=== PATIENT | female | born 1995 | race Caucasian/White ===

== ENCOUNTER 2016-08-27 00:34 | Emergency (ER) | payer OTHER ==
[2016-08-27 01:21] LABS: ABSOLUTE BASOPHILS # (AUTO) 0.1 10^3/uL (0.0-0.2); ABSOLUTE EOSINOPHILS # (AUTO) 0.2 10^3/uL (0.0-0.6); ABSOLUTE LYMPHOCYTES (AUTO) 2.5 10^3/uL (0.5-4.7); ABSOLUTE MONOCYTES (AUTO) 0.5 10^3/uL (0.1-1.4); ABSOLUTE NEUT (AUTO) 4.9 10^3/uL (1.7-8.2); BASOPHILS % (AUTO) 0.8 % (0-2); EOSINOPHILS % (AUTO) 2.1 % (0-6); HEMATOCRIT 40.9 % (36.0-47.0); HEMOGLOBIN 13.7 g/dL (12.0-15.5); HGB HCT DIFFERENCE 0.2; LYMPHOCYTES % (AUTO) 30.6 % (13-45); MEAN CORPUSCULAR HEMOGLOBIN 27.3 pg (27.0-33.4); MEAN CORPUSCULAR HGB CONC 33.6 g/dL (32.0-36.0); MEAN CORPUSCULAR VOLUME 81 fl (80-97); MONOCYTES % (AUTO) 6.3 % (3-13); RED BLOOD COUNT 5.03 10^6/uL (3.72-5.28); RED CELL DISTRIBUTION WIDTH 12.7 % (11.5-14.0); SEGMENTED NEUTROPHILS % (AUTO) 60.2 % (42-78); WHITE BLOOD COUNT 8.1 10^3/uL (4.0-10.5)
[2016-08-27 01:53] LABS: ANION GAP 12 (5-19); BLOOD UREA NITROGEN 6 mg/dL (7-20); CALCIUM 9.1 mg/dL (8.4-10.2); CARBON DIOXIDE 26 mmol/L (22-30); CHLORIDE 103 mmol/L (98-107); CREATININE RESULT 0.59 mg/dL (0.52-1.25); GLUCOSE 86 mg/dL (75-110); LIPASE 73.3 U/L (23-300); POTASSIUM 3.9 mmol/L (3.6-5.0); SODIUM 141.4 mmol/L (137-145)
[2016-08-27 01:58] LABS: APPEARANCE,URINE SLIGHTLY-CLOUDY; BILIRUBIN,URINE NEGATIVE (NEGATIVE); GLUCOSE, URINE NEGATIVE (NEGATIVE); KETONES,URINE NEGATIVE (NEGATIVE); LEUKOCYTE ESTERASE,URINE SMALL (NEGATIVE); NITRITE,URINE NEGATIVE (NEGATIVE); PROTEIN,URINE NEGATIVE (NEGATIVE); URINE SPECIFIC GRAVITY 1.011; UROBILINOGEN,URINE NEGATIVE mg/dL (<2.0)
--- NOTE | 2016-08-27 02:18 | ER Document Report ---
ED General - General Chief Complaint: Pelvic Pain Stated Complaint: CHEST TIGHTNESS,7 WKS ,LOWER R PELVIC PAIN Mode of Arrival: Ambulatory Information source: Patient Notes: Patient presents to the emergency department with complaints of right-sided abdominal pain and pain in her chest. She reports symptoms started this evening. She reports that the pain chest comes and goes when she coughs or takes a deep breath. She reports the right lower quadrant abdominal pain has been achy all day, increased this afternoon. She reports the pain is positional. She reports diarrhea 2. She denies fever vomiting but reports some nausea. She declines nausea medicine at this time. She denies vaginal discharge vaginal bleeding or pain with void. She denies trauma. Denies recent trip. Patient reports she is approximately 7 weeks . This has not been confirmed via ultrasound. She is . TRAVEL OUTSIDE OF THE [place] IN LAST 30 DAYS: No - HPI Onset: This afternoon Onset/Duration: Persistent Quality of pain: Achy Severity: Mild Pain Level: 2 Associated symptoms: Nausea Exacerbated by: Coughing, Deep breathing, Other - RLQ pain positional, changes with position Relieved by: Other - RLQ pain, relieved in different positions Similar symptoms previously: No Recently seen / treated by doctor: No - Related Data Allergies/Adverse Reactions: No Known Allergies Allergy (Verified 06/20/16 17:27) Past Medical History - General Information source: Patient Last Menstrual Period: 07/23/16 - Social History Smoking Status: Unknown if Ever Smoked Cigarette use (# per day): No Chew tobacco use (# tins/day): No Frequency of alcohol use: None Drug Abuse: None Lives with: Family Family History: Reviewed & Not Pertinent Patient has suicidal ideation: No Patient has homicidal ideation: No GI Medical History: Reports: Hx Diverticulitis - reports history when she was a child, Hx Gastroesophageal Reflux Disease Surgical Hx: Negative - Immunizations Hx Diphtheria, Pertussis, Tetanus Vaccination: No Review of Systems - Review of Systems Notes: Review HPI for review of systems., All other systems negative Physical Exam - Vital signs Vitals: Temp Pulse Resp BP Pulse Ox 98.1 F 100 18 110/64 99 08/27/16 02:00 08/27/16 02:00 08/27/16 02:00 08/27/16 02:00 08/27/16 02:00 - Notes Notes: PHYSICAL EXAMINATION: GENERAL: Well-appearing and in no acute distress Nontoxic looking HEAD: Atraumatic, normocephalic. EYES: Pupils equal round extraocular movements intact, sclera anicteric, conjunctiva are normal. ENT: nares patent, oropharynx clear without exudates. Moist mucous membranes. NECK: Normal range of motion, supple without lymphadenopathy LUNGS: CTAB and equal. No wheezes rales or rhonchi. HEART: Regular rate and rhythm without murmurs ABDOMEN: Soft, right side tenderness. No guarding, no rebound BACK: Right flank slightly ttp EXTREMITIES: Normal range of motion, no pitting edema. No cyanosis. NEUROLOGICAL: Cranial nerves grossly intact. Normal sensory/motor PSYCH: Normal mood, normal affect. SKIN: Warm, Dry, normal turgor, no rashes or lesions noted Course - Re-evaluation Re-evalutation: 08/27/16 Patient declined antinausea medicine and pain medication. Patient instructed on plan of care labs ultrasound she verbalized understanding. 08/27/16 04:17 Patient was instructed on all results. Patient reports her hCG level continues to go UP. She reports she had an HCG level drawn last week and it was 300. She was instructed on urinary or urinary tract infection with treatment of Keflex. She verbalized understanding. Patient looks good nontoxic. Her pain was on the right side not RLQ. She has an appointment with her LABORATORY OPERATIONS COORDINATOR Sep,. She reports she can get an appointment with her pcp this week. She was instructed on importance of Urine recheck. - Vital Signs Vital signs: Temp Pulse Resp BP Pulse Ox 98.0 F 62 16 102/56 L 98 08/27/16 04:16 08/27/16 04:16 08/27/16 04:16 08/27/16 04:16 08/27/16 04:16 - Laboratory Result Diagrams: 08/27/16 01:10 08/27/16 01:10 Laboratory results interpreted by me: 08/27/16 08/27/16 01:10 01:30 BUN 6 L Beta HCG, Quant 1586.50 H Ur Leukocyte Esterase SMALL H Discharge - Discharge Clinical Impression: Abdominal pain Qualifiers: Abdominal location: unspecified location Qualified Code(s): R10.9 - Unspecified abdominal pain Urinary tract infection Qualifiers: Urinary tract infection type: acute cystitis Hematuria presence: without hematuria Qualified Code(s): N30.00 - Acute cystitis without hematuria Condition: Stable Disposition: HOME, SELF-CARE Instructions: Cephalexin ([facility]), Urinary Tract Infection ([facility]), Abdominal Pain ( [facility]) Additional Instructions: *You have been evaluated for abdominal pain, UTI *The ultrasound showed aintrauterine 5weeks 1 day. You need to follow up with your LABORATORY OPERATIONS COORDINATOR for recheck within one week *Take medication as prescribed *Follow up with a primary care provider within 5 days for recheck *Return to ED for worsening condition, changes, needs *Return to ED if not better in 24 hours Prescriptions: Cephalexin Monohydrate [Keflex 500 mg Capsule] 500 mg PO QID #20 capsule
[2016-08-27 04:17] VITALS: BP 102/56
== END 2016-08-27 04:16 | disposition home or self-care (01) ==
LOC: ER 00:34
DX: O23.11 Infections of bladder in pregnancy, first trimester (principal); O26.891 Other specified pregnancy related conditions, first trimester; R10.31 Right lower quadrant pain; R07.89 Other chest pain; R11.0 Nausea; Z3A.01 Less than 8 weeks gestation of pregnancy; Z87.19 Personal history of other diseases of the digestive system
CPT/HCPCS: 36415; 76705; 76817; 80048; 81001; 83690; 84702; 85025; 87086; 99284